=== PATIENT | male | born 1985 | race Two or more races ===

== ENCOUNTER 2020-08-03 20:14 | Emergency (ER) | payer OTHER ==
[~2020-08-03] VITALS: Ht 177.8 cm; Wt 90.7 kg
== END 2020-08-03 22:08 | disposition home or self-care (01) ==
LOC: ER 20:14
DX: S13.4XXA Sprain of ligaments of cervical spine, initial encounter (principal); S51.811A Laceration without foreign body of right forearm, initial encounter; V49.88XA Car occupant (driver) (passenger) injured in other specified transport accidents, initial encounter; W22.11XA Striking against or struck by driver side automobile airbag, initial encounter; Y93.89 Activity, other specified; Y92.488 Other paved roadways as the place of occurrence of the external cause; Y99.8 Other external cause status